=== PATIENT | male | born 1965 | race American Indian/Alaskan Native ===

== ENCOUNTER → 2025-01-03 | Outpatient (CLI) | payer OTHER, SELFPAY ==
--- NOTE | 2025-01-03 12:51 | XR_ITS ---
Examination: CT brain head without contrast. CT brain head with intravenous contrast 2-D sagittal coronal reconstructions Date and time of exam:January 03, 2025 1340 hours INDICATIONS: Left eye and head pain beginning 6 days ago CTDI: vol (mGy):122 DLP: (mGycm):2616 Technique: Multiple CT axial sections of the brain have been obtained, 5 mm slice thickness, pre and post 75 cc [id number] 2-D sagittal, coronal reconstructions have been obtained Low dose protocols were performed. One or more of the following dose reduction techniques were used; automated exposure control, adjustment of the mA and/or KV according to patient size, use of iterative reconstruction technique. Findings: No significant ventricular enlargement. Intra-axial or extra-axial hemorrhage density is not seen. No mass effect or midline shift Basal cisterns are not remarkable. Fourth ventricle is midline. Cranial vault intact. The optic globes exhibit symmetry No abnormal enhancing cerebellar or cerebral lesions Impression: Negative for acute hemorrhage, mass effect or midline shift Consider brain MRI follow-up pre and postcontrast
--- NOTE | 2025-01-03 12:51 | XR_ITS ---
Examination: CTA brain, head with intravenous contrast. 2-D sagittal, coronal reconstructions. 3-D reconstructions. Exam date and time: January 03, 2025 1340 hours INDICATIONS: Left eye pain beginning 6 days ago CTDI: vol (mGy) 21.2 DLP: (mGycm) 150 Technique: Multiple CTA axial brain, head carotid images post intravenous contrast injection 75 cc, [id number]. 2-D sagittal, coronal reconstructions. 3-D reconstructions, 3-D post processing including vascular maximum intensity projection images. Low dose protocols were performed. One or more of the following dose reduction techniques were used; automated exposure control, adjustment of the mA and/or KV according to patient size, use of iterative reconstruction technique. Findings: Petrous juxtasellar portions internal carotid arteries intact M1 segments middle cerebral arteries fill The 3-D reconstructions do not include the peripheral branches of the middle cerebral arteries but these are included on the axial images No large vessel occlusions Basilar artery posterior cerebral branches fill No area of aneurysmal dilatation or cerebral dissection IMPRESSION: No cerebral large vessel arterial occlusions or thrombus No cerebral aneurysm dilatation noted
== END | disposition home or self-care (01) ==
PROVIDERS: PCP Internal Medicine; Referring Provider Internal Medicine; Visit Provider Internal Medicine
DX: H02.402 Unspecified ptosis of left eyelid (principal); H57.12 Ocular pain, left eye; I48.0 Paroxysmal atrial fibrillation
CPT/HCPCS: 70470; 70496; A4649; Q9967